=== PATIENT | female | born 1970 | race Caucasian/White ===

== ENCOUNTER 2024-08-20 04:11 | Day surgery (SDC) | payer BC ==
[2024-08-13 11:11] VITALS: BMI 35.2
[2024-08-20] MEDS ORDERED: MIDAZOLAM HCL 2 MG/2 ML SINGLE DOSE VIAL ONE (08:05)
[2024-08-20] MEDS ORDERED: PROPOFOL 20 ML ONE ×2 (08:05→08:21)
[2024-08-20] MEDS ORDERED: IBUPROFEN 600 MG TABLET (FP) PO PRN (08:43)
[2024-08-20] MEDS ORDERED: oxyCODONE HCL 5 MG TABLET PO PRN (08:43)
[2024-08-20] MEDS ORDERED: IBUPROFEN 800 MG/8 ML IJ IVPB PRN (08:43)
[2024-08-20] MEDS ORDERED: ONDANSETRON 4 MG/2 ML VIAL IVPUSH PRN (08:43)
[2024-08-20] MEDS ORDERED: ELECTROLYTE-148 SOLN 1,000 ML IV SCH (08:45)
[2024-08-20] MEDS ORDERED: LACTATED RINGERS SOLUTION 1,000 ML IV SCH (09:00)
[2024-08-20 10:54] VITALS: RESP 18; TEMP 97.8
[2024-08-20 12:19] VITALS: BP 119/57; PULSE 55
== END 2024-08-20 11:33 | disposition home or self-care (01) ==
LOC: JASU-SURG 04:11
PROVIDERS: ATTEND Obstetrics & Gynecology
PROC: 0UB98ZX Excision of Uterus, Via Natural or Artificial Opening Endoscopic, Diagnostic (ICD-10-PCS; principal; 2024-08-20 08:00)
DX: N84.0 Polyp of corpus uteri (principal); D25.9 Leiomyoma of uterus, unspecified
CPT/HCPCS: 88305-TC; 94760